=== PATIENT | male | born 1995 | race Caucasian/White ===

== ENCOUNTER 2025-03-24 13:10 | Observation (INO) | payer SELFPAY ==
[2025-03-24] VITALS (7 sets, daily range): BP systolic 116–147; BP diastolic 58–100; PULSE 62–84; RESP 16–18; TEMP 36.3–36.8; O2SAT 94–99; BMI 31.1
--- NOTE | 2025-03-24 13:29 | ED_ITS ---
HPI - General Adult 2 General: Chief complaint: General Medical Stated complaint: dehyrated Time Seen by Provider: 03/24/25 13:28 History of Present Illness: 30-year-old male presents emergency room stating has been vomiting throughout the night he been outside at working quite a bit lately he fears he may be dehydrated. No fever sweats or chills. No abdominal pain. He complains of vomiting and muscle cramping. No hemoptysis no hematochezia melena hematemesis no dysuria urgency or frequency. Slight increased discomfort in the left upper quadrant. Patient denies using alcohol no history of kidney stones. Associated symptoms: Deny chest pain, dyspnea or rash Related Data Allergies Allergy/AdvReac Type Severity Reaction Status Date / Time No Known Allergies Allergy Verified 03/24/25 13:18 Review of Systems 2 Const: Denies: fever(s) or chills Card: Denies: chest pain Resp: Denies: dyspnea GI: Denies: abdominal pain : Denies: dysuria, urinary frequency or urinary urgency Musc: Denies: neck pain or back pain Skin/Breast: Denies: rash Physical Exam 2 Const: GENERAL APPEARANCE: cooperative ORIENTATION/CONSCIOUSNESS: Yes awake, Yes oriented to person, Yes oriented to place and Yes oriented to time HENMT: COMMON NORMALS: normocephalic, atraumatic and hearing grossly normal bilaterally HEAD & SCALP: normocephalic and atraumatic Resp: COMMON NORMALS: normal respiratory effort, No retractions, No use of accessory muscles and clear to auscultation bilaterally AUSCULTATION: clear to auscultation bilaterally Cardio: COMMON NORMALS: regular rate, regular rhythm and No murmurs present (Cardio) RATE: regular rate RHYTHM: regular rhythm GI: COMMON NORMALS: Soft to palpation and No hepatosplenomegaly present A USCULTATION: Yes normoactive bowel sounds PALPATION: Yes Soft to palpation, No Tenderness to palpation present (GI), No Guarding due to palpation present (GI) and Yes No hepatosplenomegaly present Extremity: COMMON NORMALS: normal to inspection, capillary refill normal, no clubbing, cyanosis or edema, no calf tenderness and no pedal edema Neuro: SENSORIUM/ORIENTATION: Yes oriented to person, Yes oriented to place and Yes oriented to time Skin: COMMON NORMALS: no rashes or lesions noted GENERAL SKIN EXAM: no rashes or lesions noted Course 2 Vital Signs: Vital signs: Vital Signs Temperature 98.2 F 03/24/25 13:15 Pulse Rate 80 03/24/25 13:15 Respiratory Rate 16 03/24/25 13:15 Blood Pressure 139/92 03/24/25 13:15 Pulse Oximetry 99 03/24/25 13:15 Oxygen Delivery Me thod Room Air 03/24/25 13:15 MDM - General Adult Medical Decision Making Patient has rhabdomyolysis with acute kidney injury. He states he had a similar episode very recently was given IV fluids treated as an outpatient. Ultrasound bilaterally of the kidneys showed no significant abnormality per tech final reading pending. Patient is placed on observation with IV fluids discussed with hospitalist orders written. Urinalysis still pending. Medical Records I reviewed the patient's medical records. Lab Data I reviewed the patient's lab results. 03/24/25 13:36 03/24/25 13:36 Laboratory Results WBC 12.90 10^3/uL (3.29-11.43) H 03/24/25 13:36 RBC 5.69 10^6/uL (3.85-5.65) H 03/24/25 13:36 Hgb 16.30 g/dL (11.27-16.99) 03/24/25 13:36 Hct 47.8 % (37-53) 03/24/25 13:36 MCV 84.0 fl (82-101) 03/24/25 13:36 MCH 28.6 pg (27-33) 03/24/25 13:36 MCHC 34.1 g/dL (30-55) 03/24/25 13:36 RDW 12.8 % (12.1-15.1) 03/24/25 13:36 Plt Count 318 10^3/cmm (157-399) 03/24/25 13:36 MPV 9.7 fL (7.4-10.4) 03/24/25 13:36 Neut % (Auto) 70.2 % 03/24/25 13:36 Lymph % (Auto) 18.4 % 03/24/25 13:36 [place] % (Auto) 10.6 % 03/24/25 13:36 Eos % (Auto) 0.2 % 03/24/25 13:36 Baso % (Auto) 0.3 % 03/24/25 13:36 Neut # (Auto) 9.05 10^3/uL (1.8-7.7) H 03/24/25 13:36 Lymph # (Auto) 2.4 10^3/uL (0.8-4.8) 03/24/25 13:36 [place] # (Auto) 1.4 10^3/uL (0.2-0.9) H 03/24/25 13:36 Eos # (Auto) 0.0 10^3/uL (0.0-0.8) 03/24/25 13:36 Baso # (Auto) 0.0 10^3/uL (0.0-0.1) 03/24/25 13:36 Nucleated RBC % (auto) 0 % 03/24/25 13:36 Nucleated RBCs # 0.0 /100WBC 03/24/25 13:36 Sodium 136 mmol/L (136-145) 03/24/25 13:36 Potassium 4.2 mmol/L (3.5-5.1) 03/24/25 13:36 Chloride 92 mmol/L (98-107) L 03/24/25 13:36 Carbon Dioxide 27 mmol/L (22-29) 03/24/25 13:36 Anion Gap 21.2 (5-19) H 03/24/25 13:36 BUN 42 mg/dL (6-20) H 03/24/25 13:36 Creatinine 2.3 mg/dL (0.7-1.2) H 03/24/25 13:36 GFR Calculation 34.0 mL/min (90-130) L 03/24/25 13:36 Glucose 100 mg/dL (65-115) 03/24/25 13:36 Calculated Osmolality 293 mOsm/kg (285-295) 03/24/25 13:36 Calcium 10.6 mg/dL (8.5-10.5) H 03/24/25 13:36 Total Bilirubin 1.4 mg/dL (0.15-1.2) H 03/24/25 13:36 AST 65 U/L (0-40) H 03/24/25 13:36 ALT 40 U/L (0-41) 03/24/25 13:36 Alkaline Phosphatase 109 U/L (40-130) 03/24/25 13:36 Creatine Kinase 1934 U/L (39-308) H* 03/24/25 13:36 Total Protein 8.9 g/dL (6.6-8.7) H 03/24/25 13:36 Albumin 5.6 g/dL (3.5-5.2) H 03/24/25 13:36 Globulin 3.3 g/dL (1.3-4.6) 03/24/25 13:36 All radiology interpretation(s) finalized by discharge Discharge Plan Discharge Admit Provider: iNkolai Watts Condition: Stable Coding Level of Care Code ED Glass Block Installer for Emeka Mejia
[2025-03-24 13:41] LABS: Hematocrit 47.8 % (37-53); Hemoglobin 16.30 g/dL (11.27-16.99); Mean Corpuscular HGB Conc 34.1 g/dL (30-55); Mean Corpuscular Hemoglobin 28.6 pg (27-33); Mean Corpuscular Volume 84.0 fl (82-101); Nucleated Red Blood Cells % 0 %; Platelet Count 318 10^3/cmm (157-399); Red Blood Count 5.69 10^6/uL (3.85-5.65); White Blood Count 12.90 10^3/uL (3.29-11.43)
[2025-03-24 13:57] LABS: Alanine Aminotransferase 40 U/L (0-41); Albumin Level 5.6 g/dL (3.5-5.2); Alkaline Phosphatase 109 U/L (40-130); Anion Gap 21.2 (5-19); Aspartate Amino Transferase 65 U/L (0-40); Blood Urea Nitrogen 42 mg/dL (6-20); Calcium 10.6 mg/dL (8.5-10.5); Carbon Dioxide 27 mmol/L (22-29); Chloride 92 mmol/L (98-107); Creatinine Clr Calc Pharmacy 59.7133; Globulin 3.3 g/dL (1.3-4.6); Glucose 100 mg/dL (65-115); Osmolality Calculated 293 mOsm/kg (285-295); Potassium 4.2 mmol/L (3.5-5.1); Sodium 136 mmol/L (136-145); Total Protein 8.9 g/dL (6.6-8.7)
[2025-03-24] MEDS: ondansetron 2 mg/ML SDV 2 mL 4 MG IVP (14:18)
--- NOTE | 2025-03-24 14:23 | US_ITS ---
WS: [id number] ULTRASOUND RENAL TECHNIQUE: Ultrasound examination of both kidneys. CLINICAL INFORMATION: OLIVER COMPARISON: None. FINDINGS: RIGHT: Right kidney is normal in size and appearance. Echogenicity: Normal. Cortical thickness: 1.5 cm; Normal. Hydronephrosis: None. Perinephric fluid: None. Right kidney measures: 10.0 cm x 6.1 cm x 5.3 cm. LEFT: Left kidney is normal in size and appearance. Echogenicity: Normal. Cortical thickness: 1.4 cm; Normal. Hydronephrosis: None. Perinephric fluid: None. Left kidney measures: 9.0 cm x 5.4 cm x 5.0 cm. Normal visualized aorta. Normal bladder. Bilateral ureteral jets visualized. US/US renal BI* [id number] IMPRESSION: 1. No hydronephrosis in either kidney. 2. Bilateral ureteral jets visualized.
[2025-03-24 15:25] LABS: Glucose Urine UA Negative (Normal); Nitrate Urine Negative (Negative)
[2025-03-24 15:29] LABS: Add Urine Microscopic? YES
[2025-03-24 15:55] LABS: Specific Gravity, Urine 1.035 (1.005-1.030)
--- NOTE | 2025-03-24 16:19 | P.HP_ITS ---
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 He has no significant past medical history. Approximately 3 weeks ago patient had dehydration decreased urination muscle cramps and presented to hospital where he was working. He was told that he had rhabdomyolysis they gave him a couple liters of fluid and he was discharged. He took a week off but no follow- up. Subsequently he worked 4 days March 09 through . He denies any problems at that time he had another week off. Then, 2 days ago he started to work in [place]. Everything was fine on Sunday. However yesterday at the end of work he was starting to get very overheated. He states that he takes lunch in an air conditioned truck. He drinks water room temperature all day. However he says where he is working its about 110 degrees he is wearing long sleeves he has a shield and other coverings. Last night he vomited all through the night and was unable to keep liquids down. Finally at 0400 this morning he vomited his last time and continue to drink liquids. He drove 5 hours from [place] and came to the ER locally close to home. In our ER, he was found to have rhabdomyolysis with a CPK of 1934. He is showing signs of acute kidney injury with a BUN of 42 and creatinine of 2.3. He also has a white count of 12.9. And his urine shows dark yellow cloudy urine with a specific gravity of 1.035 protein 3+ blood 1+ bilirubin 1+. He was will be admitted to the general medical floor Review of Systems 2 Const: Denies: fever(s) or chills Eyes: Denies: change in vision ENMT: Denies: throat pain or nasal congestion Card: Denies: chest pain or palpitations Resp: Denies: dyspnea or productive cough GI: Reports: nausea and vomiting; Denies: abdominal pain, hematemesis or change in stool character : Reports: oliguria; Denies: dysuria Musc: Denies: back pain or extremity pain Skin/Breast: Denies: rash or lesions Neuro: Denies: headache(s) or dizziness Psych: Denies: anxiety or depression [place]/Lymph: Denies: easy bruising or easy bleeding Medications/Allergies Home Medications ?Medication ?Instructions ?Recorded ?Confirmed ?Last Taken ?Type ibuprofen 200 mg tablet (Advil) 800 mg PO Q6H PRN Feve r Or Pain 03/24/25 03/24/25 03/24/25 09:00 History Allergies Allergy/AdvReac Type Severity Reaction Status Date / Time No Known Allergies Allergy Verified 03/24/25 13:18 Vitals/I&O/Wt Last Vital Signs Temp 98.2 F 03/24/25 13:15 Pulse 80 03/24/25 13:15 Resp 16 03/24/25 13:15 BP 139/92 03/24/25 13:15 Pulse Ox 99 03/24/25 13:15 O2 Del Method Room Air 03/24/25 13:15 03/24/25 03/24/25 03/24/25 06:59 14:59 22:59 Intake Total 965.7 / 965.7 Balance 965.7 / 965.7 Weight last 48 hrs Weight 104.326 kg Physical Exam 2 Narrative: Alert oriented to person place time and situation no acute distress HEENT head is normocephalic atraumatic pupils are equal round reactive to light and accommodation extraocular muscles are intact there is no scleral icterus mucous membranes are now moist and pink without lesions or exudate neck is supple no JVD carotid bruits or lymphadenopathy heart is regular normal S1-S2 without murmurs clicks gallops or rubs lungs clear to auscultation without wheezes rales or rhonchi Abdomen min mild tenderness in the epigastric to left upper abdomen most likely due to retching normal active bowel sounds no hepatosplenomegaly Extremities no clubbing cyanosis or edema Psych normal mood and affect for illness Back no kyphosis or scoliosis no CVA tenderness Skin no lesions or rashes Data 03/24/25 13:36 03/24/25 13:36 Other Labs: CPK 1934 Urinalysis abnormal as above in HPI A&P Assessment and plan 1. OLIVER (acute kidney injury): 2. Rhabdomyolysis: 3. Dehydration: Plan: Patient will be placed in observation status to the general medical floor. IV fluids at 150 cc an hour. Note patient has already received 2 L in the ER Check labs with morning labs. Avoid nephrotoxin agents; no anti-inflammatories for pain. Follow-up renal ultrasound to assess for underlying chronic condition leading to 2 episodes of rhabdomyolysis in 3 weeks PDMP PDMP Reviewed: Not Reviewed Attestations 2 Medical Necessity Statement*: Patient requires hospitalization for aggressive IV fluid hydration and testing for OLIVER. His care is expected less than 2 midnights Coding Level of Care Code [facility] Diagn[facility] OLIVER (acute kidney injury) N17.9 Rhabdomyolysis M62.82 Dehydration E86.0
[2025-03-25 03:00] LABS: Anion Gap 15.8 (5-19); Blood Urea Nitrogen 32 mg/dL (6-20); Calcium 9.1 mg/dL (8.5-10.5); Carbon Dioxide 25 mmol/L (22-29); Chloride 100 mmol/L (98-107); Creatinine Clr Calc Pharmacy 98.1004; Glucose 100 mg/dL (65-115); Magnesium 2.6 mg/dL (1.7-2.3); Osmolality Calculated 289 mOsm/kg (285-295); Potassium 4.8 mmol/L (3.5-5.1); Sodium 136 mmol/L (136-145)
[2025-03-25 03:51] VITALS: BP 138/74; PULSE 60; RESP 16; TEMP 36.8; O2SAT 99
[2025-03-25 07:40] VITALS: BP 126/75; PULSE 67; RESP 16; TEMP 36.4; O2SAT 96
--- NOTE | 2025-03-25 09:17 | PC.CHAP ---
Pastoral Care Encounter/Spiritual Assessment Type of Contact [] Declined returns clerk visit [] Patient/Family/Request visit [] Outpatient visit [] Follow-up visit [] Physician referral [] Code/Alert [x] Routine visit [] Staff referral [] Actively dying [] Patient sleeping [] Family support [] [] Out of room [] Palliative care [] [] Receiving care in room [] Pre-surgical visit [] Trauma [] Long length of stay [] ICU visit [] Other: Relational/Emotional Strength [x] Patient feels connected with others/family/visitors/staff [] Distress [] Loneliness/isolation [] Abandonment Spirituality of Patient [x] Person of Marcia [] Attends Protestant of their Marcia [x] Believes in Prayer [] Reads Bible or Lutheran materials [] There are Spiritual issues to be addressed Bartender Server Interventions [x] Prayer [x] Active listening [] Non-anxious presence [x] Spiritual/emotional support [] Crisis/trauma care [] Spiritual counseling [] Bereavement support [] Provided bereavement packet [] Provided Bible/devotional materials [] Provided toy/stuffed animal, coloring book to patient or family member [] Provided Communion [] Anointing/[place] [] Salvation [x] Completed spiritual assessment [] Other: Impact on Illness or Injury [] Angry [] Fearful [] Anxious [] Often cries [] Exhaustion [] Unable to work [] Unable to attend orthodoxy [] Unable to walk/stand [] Unable to read [] Unable to drive [] Unable to eat/drink [] Unable to sleep [] Unable to be with family [] Patient intubated [] Other: Summary Time spent with patient 5 min
[2025-03-25 11:00] VITALS: BP 119/74; PULSE 64; RESP 16; TEMP 36.8; O2SAT 97
[2025-03-25 14:30] LABS: Alanine Aminotransferase 26 U/L (0-41); Albumin Level 4.3 g/dL (3.5-5.2); Alkaline Phosphatase 79 U/L (40-130); Anion Gap 11.6 (5-19); Aspartate Amino Transferase 51 U/L (0-40); Blood Urea Nitrogen 23 mg/dL (6-20); Calcium 8.9 mg/dL (8.5-10.5); Carbon Dioxide 28 mmol/L (22-29); Chloride 101 mmol/L (98-107); Creatinine Clr Calc Pharmacy 123.3160; Globulin 2.3 g/dL (1.3-4.6); Glucose 77 mg/dL (65-115); Osmolality Calculated 284 mOsm/kg (285-295); Potassium 4.6 mmol/L (3.5-5.1); Sodium 136 mmol/L (136-145); Total Protein 6.6 g/dL (6.6-8.7)
--- NOTE | 2025-03-25 15:10 | PM.DCS ---
Discharge Providers Date of Admission: 03/24/25 14:56 Date of Discharge: March 25, 2025 Attending Provider at Admission: Nikolai Watts DO Attending Provider at Discharge: Nikolai Watts DO Primary Care Provider: Antonio Leung DO Diagnoses at Discharge Discharge Diagnosis 1. OLIVER (acute kidney injury): 2. Rhabdomyolysis: 3. 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 He recently was diagnosed with rhabdo my lysis 3 weeks earlier received fluids in the ER and sent home. He reports that at that time he had no renal involvement. Hospital Course Hospital Course During this hospitalization he was found to have elevated BUN/creatinine at 42 and 2.3 with a CPK of 1900. He was admitted to the general medical floor and given IV fluid hydration avoidance of nephrotoxic agents In the following morning firer boiler hours his BUN and creatinine decreased to 32/1.4 and a CPK at 1556. We continue treatment for another almost 12 hours and his BUN/creatinine decreased again to 23/1.1 and his CPK decreased to 1142. Patient is feeling well and he is tolerating diet no fever or chills. His vital signs are stable and he is in improved condition. Patient was educated on no work until cleared by PCP after repeat blood work. He has requested a nephrology consult which will be placed. He was instructed on no alcohol or caffeine use as it may contribute to dehydration And he is counseled on avoidance of nephrotoxic agents specifically aspirin and anti-inflammatories. Physical Exam Narrative: Heart regular normal S1-S2 without murmurs clicks gallops or rubs lungs clear to auscultation without wheezes rales or rhonchi Abdomen min mild tenderness in the epigastric to left upper abdomen most likely due to retching normal active bowel sounds no hepatosplenomegaly Extremities no clubbing cyanosis or edema Skin no rashes Discharge Data Studies Completed and Pending Completed Studies During Hospitalization Category Date Time Status US renal BI* [id number] Stat Ultrasound 03/24/25 14:23 Completed Radiology Impressions Renal Ultrasound 03/24/25 14:23 IMPRESSION: 1. No hydronephrosis in either kidney. 2. Bilateral ureteral jets visualized. Laboratory Results WBC 12.90 10^3/uL (3.29-11.43) H 03/24/25 13:36 RBC 5.69 10^6/uL (3.85-5.65) H 03/24/25 13:36 Hgb 16.30 g/dL (11.27-16.99) 03/24/25 13:36 Hct 47.8 % (37-53) 03/24/25 13:36 MCV 84.0 fl (82-101) 03/24/25 13:36 MCH 28.6 pg (27-33) 03/24/25 13:36 MCHC 34.1 g/dL (30-55) 03/24/25 13:36 RDW 12.8 % (12.1-15.1) 03/24/25 13:36 Plt Count 318 10^3/cmm (157-399) 03/24/25 13:36 MPV 9.7 fL (7.4-10.4) 03/24/25 13:36 Neut % (Auto) 70.2 % 03/24/25 13:36 Lymph % (Auto) 18.4 % 03/24/25 13:36 [place] % (Auto) 10.6 % 03/24/25 13:36 Eos % (Auto) 0.2 % 03/24/25 13:36 Baso % (Auto) 0.3 % 03/24/25 13:36 Neut # (Auto) 9.05 10^3/uL (1.8-7.7) H 03/24/25 13:36 Lymph # (Auto) 2.4 10^3/uL (0.8-4.8) 03/24/25 13:36 [place] # (Auto) 1.4 10^3/uL (0.2-0.9) H 03/24/25 13:36 Eos # (Auto) 0.0 10^3/uL (0.0-0.8) 03/24/25 13:36 Baso # (Auto) 0.0 10^3/uL (0.0-0.1) 03/24/25 13:36 Nucleated RBC % (auto) 0 % 03/24/25 13:36 Nucleated RBCs # 0.0 /100WBC 03/24/25 13:36 Sodium 136 mmol/L (136-145) 03/25/25 13:57 Sodium Cancelled 03/25/25 13:57 Potassium 4.6 mmol/L (3.5-5.1) 03/25/25 13:57 Potassium Cancelled 03/25/25 13:57 Chloride 101 mmol/L (98-107) 03/25/25 13:57 Chloride Cancelled 03/25/25 13:57 Carbon Dioxide 28 mmol/L (22-29) 03/25/25 13:57 Carbon Dioxide Cancelled 03/25/25 13:57 Anion Gap 11.6 (5-19) 03/25/25 13:57 Anion Gap Cancelled 03/25/25 13:57 BUN 23 mg/dL (6-20) H 03/25/25 13:57 BUN Cancelled 03/25/25 13:57 Creatinine 1.1 mg/dL (0.7-1.2) 03/25/25 13:57 Creatinine Cancelled 03/25/25 13:57 GFR Calculation 79.7 mL/min (90-130) L 03/25/25 13:57 GFR Calculation Cancelled 03/25/25 13:57 Glucose 77 mg/dL (65-115) 03/25/25 13:57 Glucose Cancelled 03/25/25 13:57 Calculated Osmolality 284 mOsm/kg (285-295) L 03/25/25 13:57 Calculated Osmolality Cancelled 03/25/25 13:57 Calcium 8.9 mg/dL (8.5-10.5) 03/25/25 13:57 Calcium Cancelled 03/25/25 13:57 Phosphorus 4.0 mg/dL (2.5-4.5) 03/25/25 02:33 Magnesium 2.6 mg/dL (1.7-2.3) H 03/25/25 02:33 Total Bilirubin 1.1 mg/dL (0.15-1.2) 03/25/25 13:57 AST 51 U/L (0-40) H 03/25/25 13:57 ALT 26 U/L (0-41) 03/25/25 13:57 Alkaline Phosphatase 79 U/L (40-130) 03/25/25 13:57 Creatine Kinase 1142 U/L (39-308) H* 03/25/25 13:57 Creatine Kinase Cancelled 03/25/25 13:57 Total Protein 6.6 g/dL (6.6-8.7) 03/25/25 13:57 Albumin 4.3 g/dL (3.5-5.2) 03/25/25 13:57 Globulin 2.3 g/dL (1.3-4.6) 03/25/25 13:57 Urine Color Dark yellow (Yellow) A 03/24/25 15:17 Urine Appearance Cloudy (CLEAR) A 03/24/25 15:17 Urine pH 5.0 (5-7) 03/24/25 15:17 Ur Specific [place] 1.035 (1.005-1.030) H 03/24/25 15:17 Urine Protein 3+ (Negative) A 03/24/25 15:17 Urine Glucose (UA) Negative (Normal) 03/24/25 15:17 Urine Ketones Trace (Negative) 03/24/25 15:17 Urine Blood 1+ (Negative) A 03/24/25 15:17 Urine Nitrate Negative (Negative) 03/24/25 15:17 Urine Bilirubin 1+ (Negative) H 03/24/25 15:17 Urine Urobilinogen 1.0 mg/dL (Negative) 03/24/25 15:17 Ur Leukocyte Esterase Negative (Negative) 03/24/25 15:17 Urine RBC 0-2 /hpf (0-2) 03/24/25 15:17 Urine WBC 0-5 /hpf (0-5) 03/24/25 15:17 Ur Squamous Epith Cells 6-10 /hpf (0-5) 03/24/25 15:17 Amorphous Sediment Not Reportable 03/24/25 15:17 Urine Bacteria None seen /hpf (NONE) 03/24/25 15:17 Hyaline Casts 112.95 /lpf 03/24/25 15:17 Imaging US: Radiologist's impression: Renal ultrasound RIGHT: Right kidney is normal in size and appearance. Echogenicity: Normal. Cortical thickness: 1.5 cm; Normal. Hydronephrosis: None. Perinephric fluid: None. Right kidney measures: 10.0 cm x 6.1 cm x 5.3 cm. LEFT: Left kidney is normal in size and appearance. Echogenicity: Normal. Cortical thickness: 1.4 cm; Normal. Hydronephrosis: None. Perinephric fluid: None. Left kidney measures: 9.0 cm x 5.4 cm x 5.0 cm. Normal visualized aorta. Normal bladder. Bilateral ureteral jets visualized. US/US renal BI* [id number] IMPRESSION: 1. No hydronephrosis in either kidney. 2. Bilateral ureteral jets visualized. Vitals Last Vital Signs Temp 98.2 F 03/25/25 11:00 Pulse 64 03/25/25 11:00 Resp 16 03/25/25 11:00 BP 119/74 03/25/25 11:00 Pulse Ox 97 03/25/25 11:00 O2 Del Method Room Air 03/25/25 11:00 Discharge Plan Discharge Patient Disposition: Home Condition: Stable Prescriptions: New acetaminophen 325 mg Tablet 650 mg PO Q6H PRN (Reason: Mild/Mod Pain Or Temp >/= 101) Qty: 30 0RF Discontinued ibuprofen [Advil] 200 mg Tablet 800 mg PO Q6H PRN (Reason: Fever Or Pain) Health Insurance Assessor OK for DC: Hospitalist Discharge Order = DC NOW: Discharge Order (Routine); Ordered 03/25/25 Ordered By: Nikolai Watts Other Ambulatory Orders: Basic Metabolic Panel (Routine) Timeframe: 20250331 Facility: [facility] - Location: Lab - Main Lab Ordered By: Nikolai Watts Creatine Phosphokinase (Routine) Timeframe: 20250331 Facility: [facility] - Location: Lab - Main Lab Ordered By: Nikolai Watts Referrals: Antonio Leung DO [Primary Care Provider, [facility]] Referral Note: We have notified your physician's clinic of the need for a follow-up appointment to be scheduled. If you have not heard from them within the next 2 business days, please call them directly. Discharge Diet: As Directed Discharge Activity: Limit activity as instructed Patient Instructions: Patient Portal & [place] Instructions Activity Restrictions/Additional Instructions: Rest, keep hydrated, stay cool. No work until seen by PCP for clearance. Avoid alcohol and caffeine as these cause dehydration. Avoid kidney toxic agents such as aspirin ibuprofen Motrin and other anti-inflammatories. May use Tylenol for pain fever Discharge Attestations Time Spent in Discharge Care*: greater than 30 min Quality Metrics Clinical Quality Measures [ No reported AMI, CVA or VTE this stay] Coding Level of Care Code Acute Code for [facility]g Fwd Diagnoses OLIVER (acute kidney injury) N17.9 Rhabdomyolysis M62.82 Dehydration E86.0
--- NOTE | 2025-03-26 17:19 | PC.NURSE ---
fax received from [facility] stating that nephrology consult not indicated at this time. patient to follow up with pcp and if there is a need for nephrology pcp should send a new referral. blog writer tried to call patient 2x with no answer.
== END 2025-03-25 15:30 | disposition home or self-care (01) ==
LOC: ER 14:35 → MEDSURG 14:58
PROVIDERS: Admitting Provider Internal Medicine; Emergency Provider Family Medicine; Family Provider Family Medicine; PCP Family Medicine; Visit Provider Internal Medicine
DX: N17.9 Acute kidney failure, unspecified (principal); M62.82 Rhabdomyolysis; E86.0 Dehydration
CPT/HCPCS: 36415; 76770; 80048; 80053; 81001; 82550; 83735; 84100; 85025; 96361; 96374; 99285; G0378; J2405; J7030

== ENCOUNTER → 2025-04-09 14:32 | Outpatient (BNVA) | payer SELFPAY | PROVIDERS: Family Provider Family Medicine; PCP Family Medicine; Visit Provider Family Medicine | DX: M62.82 Rhabdomyolysis (principal) | CPT/HCPCS: 80053; 81000; 82550 ==